=== PATIENT | male | born 1960 | race Caucasian/White ===

== ENCOUNTER → 2018-06-19 | Outpatient (CLI) | payer OTHER ==
--- NOTE | 2018-06-19 08:18 | MR ---
MRI CERVICAL SPINE: CLINICAL HISTORY: Neck pain per order. Headache with neck pain for 8months. TECHNIQUE: Multiplanar, multisequence imaging of the cervical spine is performed without IV contrast. COMPARISON: None. FINDINGS: Coronal images show slight S-shaped scoliosis levoconvex in the mid to lower cervical spine and dextroconvex centered in the upper thoracic spine. Spine is straightened on sagittal images. Sag ittal images of the cervical spine show the craniocervical junction to appear within normal limits. The cervical and upper thoracic spinal cord is normal in course, caliber, and signal. The vertebral b flore[place]io heights are normal. There is mild to moderate disc space narrowing C4-C5 and C6-C7 levels. Hetero geneous endplate changes with mild to moderate spurring C6-C7 level is present. Posterior disc hernia tion C6-C7 level seen on sagittal images. There are additional small posterior disc herniations T1-T2 through the T3-T4 levels on sagittal images. Axial images at C2-C3 level shows left paracentral spur disc complex effacing anterolateral thecal sa c with left-sided uncovertebral facet degenerative changes, there is moderate left-sided neural angelo inal narrowing and mild effacement of the anterolateral thecal sac. Axial images at C3-C4 level show uncovertebral facet degenerative changes bilaterally contributing to mild right greater than left bilateral neural foraminal narrowing. Axial images at C4-C5 level are felt within normal limits. Axial images at C5-C6 level show broad-based posterior disc protrusion and uncovertebral facet degene rative changes. There is mild effacement anterior thecal sac. There is moderate right and mild left-s ided neural foraminal narrowing seen. Axial images at C6-C7 level show more prominent broad-based posterior disc protrusion effacing anteri or thecal sac and causing advanced left and moderate to advanced right-sided neural foraminal narrowi ng. Axial images at C7-T1 level are felt within normal limits. IMPRESSION: Loss of normal cervical curvature with multilevel degenerative changes most prominent at C6-C7 level seen as detailed above.
== END | disposition home or self-care (01) ==
LOC: RADMRIMAIN 06:56
PROVIDERS: ATTEND Family Medicine
DX: M47.812 Spondylosis without myelopathy or radiculopathy, cervical region (principal)
CPT/HCPCS: 72141

== ENCOUNTER → 2020-11-29 | Outpatient (CLI) | payer OTHER ==
--- NOTE | 2020-11-29 23:26 | MR ---
EXAMINATION TYPE: MR shoulder RT wo con DATE OF EXAM: 11/29/2020 COMPARISON: None HISTORY: Right shoulder pain, limited ROM Multiplanar multiecho imaging of the right shoulder was performed without contrast. There is shoulder joint effusion. There is large rotator cuff tear with retraction of the supraspinat us tendon. There is large bare area on the superior aspect of the humeral head. There is subacromial joint space narrowing. There is spurring at the AC joint and subacromial impingement. The biceps tendon is intact. There is some fluid around the biceps tendon. The glenoid dov appear i ntact. The subscapularis tendon shows mild thickening. I see no bony destructive process. There is no evidence of a fracture. IMPRESSION: Large shoulder joint effusion consistent with synovitis. Very large rotator cuff tear with retraction of the supraspinatus tendon. No fracture seen. There is subacromial joint space narrowing and imping ement.
== END | disposition home or self-care (01) ==
LOC: RADMRIMAIN 21:10
PROVIDERS: ATTEND Orthopaedic Surgery
DX: M75.101 Unspecified rotator cuff tear or rupture of right shoulder, not specified as traumatic (principal); M25.811 Other specified joint disorders, right shoulder; M25.411 Effusion, right shoulder

== ENCOUNTER → 2024-02-01 | Day surgery (SDC) | payer MEDICARE, OTHER ==
[2024-01-31 12:55] VITALS: BMI 32.5
[~2024-02-01] MED LIST: LIDOCAINE 1% INJ 10MG/ML (20 ML MDV) ONE; PROPOFOL 10 MG/ML 20 ML VIAL IV ONE
[2024-02-01] MEDS: LACTATED RINGERS 1,000 ML IV SCH (10:53)
[2024-02-01] MEDS: LIDOCAINE 1% (10MG/ML) FOR IV START INTRADERMA ONE (10:53)
[2024-02-01 11:28] VITALS: TEMP 97.7
--- NOTE | 2024-02-01 11:40 | P.PCN ---
Date of Procedure: 02/01/24 Procedure(s) Performed: BRIEF HISTORY: Patient is a -year-old pleasant White male scheduled for an elective colonoscopy as a part of evaluation of prior history of colon polyps. He also has strong family history of colon cancer diagnosed in father as well as paternal grandfather in his 60s. PROCEDURE PERFORMED: Colonoscopy with snare polypectomy. PREOPERATIVE DIAGNOSIS: history of colon polyps and family history of colon cancer IV sedation per Anesthesia. PROCEDURE: After informed consent was obtained, the patient, was brought into the endoscopy unit. IV sedation was administered by Anesthesia under continuous monitoring. Digital rectal examination was normal. Initially the Olympus CF-160 flexible video colonoscope was then inserted in the rectum, gradually advanced into the cecum without any difficulty. Careful examination was performed as the scope was gradually being withdrawn. Ileocecal valve and the appendiceal orifice were visualized and appeared normal. Prep was excellent. Mucosa of the cecum, ascending colon, transverse colon, descending colon, appeared normal.in the sigmoid colon there was a 6 minute a polyp that was removed by cold snare polypectomy. In the proximal rectum there was another 5 limited polyp that was removed by cold snare polypectomy. Retroflexion was performed in the rectum and no lesions were seen. The patient tolerated the procedure well. IMPRESSION: 6 mm sigmoid: Polyp status post cold snare polypectomy 5 mm proximal rectal polyp status post-snare polypectomy RECOMMENDATIONS: Findings of this examination were discussed with the patient as well as his family. He was advised to follow with the biopsy results. If the biopsy results adenoma he can have a repeat colonoscopy in 5 years.
[2024-02-01 12:12] VITALS: BP 135/76; PULSE 52; RESP 16
== END ==
LOC: ORWHC2ENDO 10:22
PROVIDERS: ATTEND Internal Medicine Gastroenterology
DX: Z12.11 Encounter for screening for malignant neoplasm of colon (principal); D12.5 Benign neoplasm of sigmoid colon; K62.1 Rectal polyp; M19.90 Unspecified osteoarthritis, unspecified site; Z86.010 Personal history of colon polyps; Z80.0 Family history of malignant neoplasm of digestive organs; Z79.899 Other long term (current) drug therapy; Z98.890 Other specified postprocedural states
CPT/HCPCS: 88305; 45385; J2001; J2704